=== PATIENT | male | born 1960 | race Caucasian/White ===

== ENCOUNTER → 2020-10-05 | Outpatient (CLI) | payer MEDICARE ==
[~2020-10-05] MED LIST: ALPR0.5T7 PO; AMIT100T PO; ASPI-496 PO; DIAZ5TAB4 PO; DOCU-131 PO; DOXY100T51 PO; ELAVIL PO; GABA300C PO; GABA600T7 PO; IBUP200T49 PO; LEVO25TA4 PO; METH750T87 PO; OXYC-380 PO; OXYC1TAB14 PO; SENN-92 PO; SERT50TA PO; TRAM50TA2 PO; ZOLP10TA PO
== END | disposition home or self-care (01) ==
LOC: CFH 11:47
PROVIDERS: ATTEND Physician Assistant Surgical
DX: M47.816 Spondylosis without myelopathy or radiculopathy, lumbar region (principal); M43.8X6 Other specified deforming dorsopathies, lumbar region; M41.86 Other forms of scoliosis, lumbar region
CPT/HCPCS: 72131